=== PATIENT | female | born 1975 | race Caucasian/White ===

== ENCOUNTER 2018-02-06 07:35 | Day surgery (SDC) | payer OTHER, SELFPAY ==
--- NOTE | 2018-02-06 | EGD_PTH ---
PATIENT: JOEL HEWITT LOC: EN U#:[id number] AGE/SX: 42/F ROOM: RE02/06/[address]: Dr. Sachin Kiser MD : [id number] BED: DIS: 02/06/2018 SPEC #: [id number] RECD: 02/06/18 11:42 STATUS: ENEDINA ALEXANDRA #: [id number] ROSEANNE: 02/06/18 00:[address]: Sachin Kiser DEPT: SURGICAL PATHOLOGY RECD BY: Ole Ortega ENTERED: 02/06/18 11:42 SP TYPE: EGD BIOPSY OT DR: Dr. Bonnie Mccray, DO Tissues: Duodenum, NOS Procedures: Surgery Specimen Level IV HEADER OPERATION: EGD with biopsy PRE-OP DIAGNOSIS: GERD TISSUE SUBMITTED: Biopsy duodenum MICROSCOPIC DIAGNOSIS Duodenum, biopsy: Small intestinal mucosa, no pathologic diagnosis. SJ:oneyda 02/07/18 MICROSCOPIC DESCRIPTION Slides are reviewed. GROSS DESCRIPTION Received in fixative is one container labeled with the patient's name and designated biopsy duodenum. The specimen consists of one irregular fragment of light galloway soft tissue that measures 0.5 x 0.4 x 0.2 cm. The specimen is totally submitted in one cassette. / SJ:oneyda 02/06/18 TC:4 CPT: 32434
[2018-02-06 07:57] VITALS: BP 111/89; PULSE 73; RESP 16; TEMP 36.7; O2SAT 99; BMI 42.5
--- NOTE | 2018-02-06 09:29 | PCM.OPRPT ---
Problem List (1) Gastro-esophageal reflux disease with esophagitis Status: Acute Report of Operation Date of Procedure: 02/06/18 Pre-Operative Diagnosis: k21.0 gastroesophageal reflux disease with esophagitis Post-Operative Diagnosis: same Surgery/Procedure Performed:: [id number] esophagogastroduodenoscopy with biopsy Type of Anesthesia:: MAC Description of Procedure: Patient was brought into the endoscopy suite. The back of her throat with Cetacaine spray. A bite-block was placed. She was placed in the left lateral decubitus position. The scope was inserted in the back of the oropharynx and directed down through the esophagus into the stomach and into the duodenum without difficulty operative findings: 1. Duodenum: Normal appearance no mass lesions no ulcerations biopsy for celiac sprue was obtained 2. Stomach: Normal appearance no mass lesions no erythema biopsy for H. pylori was obtained retroflexion showed a minimal hiatal hernia. 3. Esophagus: Normal appearance no esophagitis Z line was at 37 cm and was intact and looked entirely normal. There was no signs of esophagitis whatsoever. For all intensive purposes this was an entirely normal scope showing no signs of any erythema or signs of reflux. - Admit VTE Documentation VTE Present on Admission: No VTE Mechan Device Prophylaxis: None VTE Pharm Prophylaxis ordered?: No Reason prophylaxis not ordered:: Treatment Not Indicated
[2018-02-06 09:34] VITALS: BP 111/89; BP 82/51; PULSE 71; RESP 16; TEMP 36.3; O2SAT 99
[2018-02-06 09:35] VITALS: BP 111/89; BP 93/63; PULSE 65; RESP 16; O2SAT 98
[2018-02-06 09:45] VITALS: BP 104/70; BP 111/89; PULSE 65; RESP 16; O2SAT 99
[2018-02-06 09:50] VITALS: BP 103/74; BP 111/89; PULSE 64; RESP 16; TEMP 36.3; O2SAT 100
== END 2018-02-06 09:56 | disposition home or self-care (01) ==
LOC: EN 07:36 → AC 07:38
PROVIDERS: Family Provider Family Medicine; PCP Family Medicine; Visit Provider Surgery
PROC: 0DJ08ZZ Inspection of Upper Intestinal Tract, Via Natural or Artificial Opening Endoscopic (ICD-10-PCS; CPT 43235; principal; 2018-02-06 09:40)
DX: K21.0 Gastro-esophageal reflux disease with esophagitis (principal); I10 Essential (primary) hypertension; K44.9 Diaphragmatic hernia without obstruction or gangrene; Z87.891 Personal history of nicotine dependence; Z85.41 Personal history of malignant neoplasm of cervix uteri
CPT/HCPCS: 43239; 88305; J7120

== ENCOUNTER → 2018-05-31 09:51 | Outpatient (CLI) | payer OTHER, SELFPAY ==
--- NOTE | 2018-05-31 09:52 | MRI_ITS ---
STUDY: MRI LEFT SHOULDER REASON FOR EXAM: Burning sensation radiating down arm, decreased range of motion and decreased cardroom hand strength. TECHNIQUE: Standardized fat and water weighted pulse sequences were obtained in all 3 orthogonal planes. COMPARISON: None. FINDINGS: There is mild supraspinatus tendinosis (T2 coronal images 12, 13) without discrete tendon tear. Normal infraspinatus tendon. There is mild subscapularis tendinosis (proton density axial images 9, 10) without discrete tendon tear. Normal teres minor tendon. Normal supraspinatus muscle. Normal infraspinatus muscle. Normal subscapularis muscle. Normal teres minor muscle. Normal glenohumeral articulation. Normal humeral head and visualized proximal humerus. Normal biceps labral complex. Normal intracapsular long biceps tendon. Normal labrum. Normal capsulo- ligamentous complex. There is acromioclavicular arthrosis with hypertrophic changes effacing the subacromial fat (T2 sagittal images 5, 6). There is a Type II morphology (curved), with a neutral orientation. There is no subacromial-subdeltoid bursal fluid. Normal visualized coracohumeral and coracoacromial ligaments. Normal deltoid muscle. Normal trapezius muscle. MRI/Upper Ext Joint Only(Routine) IMPRESSION: Mild supraspinatus and subscapularis tendinosis without demonstrated rotator cuff tear. Acromioclavicular arthrosis. Electronically Signed: Jaiden Newberry MD at 11:17 EDT Tel , Service support ,
== END ==
LOC: MRI 09:51
PROVIDERS: Family Provider Family Medicine; PCP Family Medicine; Visit Provider Orthopaedic Surgery
DX: M75.102 Unspecified rotator cuff tear or rupture of left shoulder, not specified as traumatic (principal)
CPT/HCPCS: 73221

== ENCOUNTER → 2018-06-08 16:58 | Outpatient (CLI) | payer OTHER, SELFPAY ==
--- NOTE | 2018-06-08 17:00 | RAD_ITS ---
STUDY: X-RAY - THORACIC SPINE REASON FOR EXAM: Female, 43 years old. Trauma TECHNIQUE: 2 view(s) of the thoracic spine were obtained. COMPARISON: None. FINDINGS: Normal kyphosis of the thoracic spine. There is no substantial scoliosis. No evidence for acute fracture or subluxation. There is multilevel disc space narrowing and osteophytic spurring as well as chronic compression deformities... The soft tissue structures are unremarkable. RAD/Thoracic Spine 2 Views IMPRESSION: Degenerative changes and chronic compression deformities. No evidence for acute fracture Electronically Signed: Saw Rainey MD at 20:54 EDT , Service support ,
== END ==
LOC: RAD 16:59
PROVIDERS: Family Provider Family Medicine; PCP Family Medicine; Visit Provider Anesthesiology Pain Medicine
DX: T14.90XA Injury, unspecified, initial encounter (principal); W19.XXXA Unspecified fall, initial encounter; Y93.9 Activity, unspecified; Y92.9 Unspecified place or not applicable; Y99.9 Unspecified external cause status
CPT/HCPCS: 72070

== ENCOUNTER 2018-07-12 17:00 | Outpatient (RCR) | payer OTHER, SELFPAY ==
--- NOTE | 2018-07-24 08:27 | HP.PTEVAL ---
Patient's Visit Information JOEL HEWITT is a 43 year old F referred to Physical Therapy by Anais Castelan DO with a diagnosis of L shoulder pain chronic, L UT strain. Date of Evaluation: 06/28/18 Physical Therapist: Anibal Castillo - Visit Plan Frequency: 2x /Week Duration: 4-6 Weeks Plan: Start with DN of L shoulder and neck, postural exercises, cervical retraction and distraction. Progress HEP and postural awareness as tolerated. Add in RTC strengthening as well. - Subjective Subjective: Pt. is here today for her initial evaluation with diagnosis of L shoulder pain, chronic. Pt. reports hurting her shoulder a few years ago, no known mechanism. Pt. has had and MRI in the past with reports of C6/C7 nerve impingment. She had a recent MRI shoulder L RTC tendonosis without tear. Pt. reports pain with: raeching over head, working, lifting, sleeping. Decreased pain: ice, pain meds, rest. Pt. reports N/T down L arm to 4th/5th fingers. Pt. has disrupted sleeping. Pt. has been seen for her neck without relief. Pt. has seen an ortho for both her shoudler and her neck. Pt. has trial PT previously and had injections without releif. Pt. is hopeful to trial DN, manual techniques inorder to reduce symptoms and get back to all recreational activiteis without limitations. - Pain L arm Pain Intensity (Out of 10): 4 Pain Intensity Range: 2, 8 - Objective POSTURE: Pt. has rounded shoulders with FH posture. Pt. has increased thoracic kyphosis with protracted scapulea bilaterally. PALPATION: Pt. has increased tenderness along subacromial region of L shoulder. Pt. has increased pain throughout L UT and L levator scapulea and L suboccipital region. NEURO: Normal all intact. Pt. does report N/T in 4/5th digits. Normal DTR bilaterally. ROM: CERIVCAL SPINE: flexion nil loss increase NW, ext min/mod loss increase NW, SB min loss bilat NE, rotation min loss bilat increase NW. Rshoulder- full motion without increase in symptoms. L shoulder- full motion, but has increased pain with reaching over head and wtih functional ER. MMT: R shoulder- 5/5 throughout. LUE- wrist/elbow 5/5 throughout; shoulder- flexion 4+/5, abd 4+/5, ext 5/5, ER 4+/5, IR 5/5. Pt. did have symptoms with flexion and abduction testing. CERVICAL ISO- full with mild increase NW with rectraction. - Special Tests C/S Radiculapathy - Left Upper limb tension test: Negative C/S Radiculapathy - Right Upper limb tension test: Negative C/S Radiculapathy - Left Spurlings: Positive C/S Radiculapathy - Right Spurlings: Negative C/S Radiculapathy - Left Cervical distraction: Negative C/S Radiculapathy - Right Cervical distraction: Negative C/S Radiculapathy - Left Relief test: Positive C/S Radiculapathy - Right Relief test: Negative Comments: Pt. has slight positives with radicular testing Cervical Sitting: Protrusion - Mechanical Response: No effect Cervical Sitting: Protrusion - Symptoms During Testing: No effect Cervical Sitting: Protrusion - Symptoms After Testing: No effect Cervical Sitting: Retraction - Mechanical Response: No effect Cervical Sitting: Retraction - Symptoms During Testing: Increases Cervical Sitting: Retraction - Symptoms After Testing: No worse L Shoulder Lift Off Test - Subscapular Tear: Negative L Shoulder Drop Sign - IS Test: Negative L Shoulder Empty Can - SS: Negative L Shoulder Belly Press - SupScap: Negative L Shoulder Neer - Impingement: Positive L Shoulder Blanchard Mack - Impingement: Positive - Goals Goal 1:: Pt. to be I with HEP. Goal Time Frame: 4-6 Weeks Goal 2:: Pt. to have full L shoulder and cervical spine ROM without increase in symptoms. Goal Time Frame: 4-6 Weeks Goal 3:: Pt. to demonstrate improved posture throughout therapy session indicating increased postural awareness. Goal Time Frame: 4-6 Weeks Goal 4:: Pt. to sleep throughout the night with 0-2/10 pain in L arm and neck. Goal Time Frame: 4-6 Weeks Goal 5:: Pt. to complete all work related activities with 0-2/10 pain in L arm and neck. - Rehabilitation Potential Physical Therapy Diagnosis: Pt. has signs and symptoms consistent with L shoulder pain and L shoulder girdle muscular tightness. Pt. has poor posture and increased weakness throughout L shoulder and cervical spine. Pt. would benefit from PT to increase cervical ROM, improve posture, decrease muscle tension allwoing for increased tolerance to all daily and work activities. Rehabilitation Potential: Good - Anticipated Interventions Patient/Client Instruction: Educate patient on: Condition, Plan of Care, Risk Factors, Benefits of Fitness Program For the Purpose of:: To improve health and function, To foster healthy habits, To improve decision making, To facilitate caregiver knowledge, To improve self management, To prevent re-injury, To improve ability to perform tasks related to life management, To improve tolerance to ADL's Therapeutic Exercise to Include: Strength training, Power training, Postural training, Flexibilty training, Passive ROM, Active ROM, Jose Alejandro Exercises, Scapular Strength/Stabilization For the Purpose of:: To decrease pain, To increase ROM, To improve nutrient delivery to tissue, To increase oxygenation perfusion, To improve muscle performance and motor function, To improve ability to perform ADL's, To improve gait and locomotor functions, To improve health of tissue, To decrease soft tissue restriction, To increase flexibility/ROM Manual Therapy Techniques to Include: Mobilization, Passive ROM, Functional dry needling, Soft tissue mobilization For the Purpose of:: To decrease pain, To decrease swelling/inflammation, To increase ROM, To improve nutrient delivery to tissue, To increase oxygenation perfusion, To improve muscle performance and motor function, To improve ability to perform ADL's, To improve health of tissue, To decrease soft tissue restriction Thank you for the opportunity to evaluate your patient. For Medicare and Medicare HMO plans, please review the plan of care and approve it. It will need to be FAXED BACK to us at [phone] for Medicare purposes. Please let me know if there are questions or concerns regarding this plan of care. Physician Signature: Date:
--- NOTE | 2018-08-22 10:49 | HP.PT.NRP ---
HP - Discharge Summary (1) - Patient Information JOEL HEWITT was seen in my office for initial evaluation on 06/28/18. The following Plan of Care was established for this patient: Initial Frequency: 2x /Week Initial Duration: 4-6 Weeks - Anticipated Interventions Patient/Client Instruction: Educate patient on: Condition, Plan of Care, Risk Factors, Benefits of Fitness Program For the Purpose of:: To improve health and function, To foster healthy habits, To improve decision making, To facilitate caregiver knowledge, To improve self management, To prevent re-injury, To improve ability to perform tasks related to life management, To improve tolerance to ADL's Therapeutic Exercise to Include: Strength training, Power training, Postural training, Flexibilty training, Passive ROM, Active ROM, Jose Alejandro Exercises, Scapular Strength/Stabilization For the Purpose of:: To decrease pain, To increase ROM, To improve nutrient delivery to tissue, To increase oxygenation perfusion, To improve muscle performance and motor function, To improve ability to perform ADL's, To improve gait and locomotor functions, To improve health of tissue, To decrease soft tissue restriction, To increase flexibility/ROM Manual Therapy Techniques to Include: Mobilization, Passive ROM, Functional dry needling, Soft tissue mobilization For the Purpose of:: To decrease pain, To decrease swelling/inflammation, To increase ROM, To improve nutrient delivery to tissue, To increase oxygenation perfusion, To improve muscle performance and motor function, To improve ability to perform ADL's, To improve health of tissue, To decrease soft tissue restriction This patient was last seen in our office 07/12/18. Pertinent comments regarding their Physical therapy will appear below: Pt. was seen for her shoulder/neck pain. Pt. was treated with DN, manual and stretching, postural education. Pt. was seen for 2 visits and has not been seen since. She will be DC from PT at this point in time. At this point I will be discontinuing this patient from physical therapy. I would be happy to see this patient again in the future if found appropriate by the physician. Thank you! Anibal Castillo
== END 2018-07-12 19:00 | disposition home or self-care (01) ==
LOC: PT 17:00
PROVIDERS: Family Provider Family Medicine; PCP Family Medicine; Visit Provider Orthopaedic Surgery
DX: M25.512 Pain in left shoulder (principal); M62.838 Other muscle spasm; M79.603 Pain in arm, unspecified; G89.29 Other chronic pain
CPT/HCPCS: 97110; 97140; 97162

== ENCOUNTER 2019-01-10 17:30 | Outpatient (RCR) | payer SELFPAY ==
--- NOTE | 2019-02-16 12:11 | HP.PT.NRP ---
HP - Discharge Summary (1) - Patient Information JOEL HEWITT was seen in my office for initial evaluation on . The following Plan of Care was established for this patient: This patient was last seen in our office 01/11/19. Pertinent comments regarding their Physical therapy will appear below: Pt. was seen for self pay DN to her L shoulder. Pt. made progress as expected. Pt. has not been seen in ~6 weeks and will be DC from PT at this point in time. At this point I will be discontinuing this patient from physical therapy. I would be happy to see this patient again in the future if found appropriate by the physician. Thank you! ASAD BatistaT
== END 2019-01-10 19:00 | disposition home or self-care (01) ==
LOC: PT 17:30
PROVIDERS: Family Provider Family Medicine; PCP Family Medicine
DX: M79.10 Myalgia, unspecified site (principal)

== ENCOUNTER 2023-01-27 08:39 | Day surgery (SDC) | payer OTHER, SELFPAY ==
[2023-01-27] VITALS (10 sets, daily range): BP systolic 117–149; BP diastolic 63–126; PULSE 65–90; RESP 16–18; TEMP 36.3–37.3; O2SAT 96–100; BMI 45.4
--- NOTE | 2023-01-27 08:15 | OP.PCM_ITS ---
Report of Operation Date of Procedure: 01/27/23 Pre-Operative Diagnosis: urge incontinence, nocturia, urinary frequency Post-Operative Diagnosis: same Surgery/Procedure Performed:: Axonics Stage 1 with difficulty Description of Surgical Findings:: Surgeon: Cely Heck Type of Anesthesia: MAC Description of Procedure: The patient is a 47-year-old female with significant urinary frequency, nocturia and urge incontinence with failure of more conservative management who presents for an Axonics stage I trial. Informed consent has been obtained. The patient was taken to the operating room and placed in a prone position on the operating room table. She was appropriately padded and secured to the table. Anesthesia monitored the head, neck, airway, IV access and vital signs throughout the case. Once anesthesia was appropriately administered, the patient was prepped and draped in usual sterile fashion. Using fluoroscopic visualization, her sacral anatomy was outlined on her skin using a marker. The areas overlying the insertion sites for the S3 foramen were infiltrated bilaterally with lidocaine. The patient began to move significantly, and with any stimulation was moving her hips. She was falling asleep and startling awake. The decision was made to take her later on the anesthesia. After multiple attempts, the needle was placed through the S3 foramen on the patient's left side and stimulation revealed appropriate sensation felt in the midline perineum. The guidewire was then placed and a skin incision was made. The lead was inserted and tested. All 4 leads had a good response with patient's sensation in the correct anatomic position. At this time the lead was tunneled into the selected pocket site which was previously infiltrated with lidocaine. The pocket was developed using blunt dissection and Bovie cautery. Hemostasis was obtained and then the lead was tunneled into the pocket site. The lead was cleaned and inserted into the lead extension and secured using the torque wrench. The pocket site was irrigated. Using the tunneling device, the lead extension was tunneled to the contralateral side and exited using a knife and the tunneler. The pocket was closed with 3-0 Vicryl followed by 4-0 Monocryl and Dermabond. The incision over the lead insertion site was closed with 1 deep suture followed by Steri- Strips. The lead extension was inserted into the battery and was secured using an OpSite followed by cloth tape. The patient was then taken to the recovery room in good condition. There were no complications during this procedure. Grafts/Implants Used: Axonics lead and lead extension Complications none Admit VTE Documentation VTE Present on Admission: No VTE Pharm Prophylaxis ordered?: No Reason prophylaxis not ordered:: Treatment Not Indicated
--- NOTE | 2023-01-27 08:16 | DCINST_ITS ---
Discharge Instructions Diet Discharge Diet: No restrictions Activity Discharge Activity: May Not Shower May resume sexual activity in: 3 weeks Dressing / Incision Call your doctor if your incision/area has: Continuous Slow Oozing, Sudden Increased Bleeding, Increased Pain/ Swelling, Increased Redness, Foul Smelling Discharge and Swelling at the incision site Call your doctor if you observe: Fever of 101 or Higher, Inability to urinate and Inability to have a bowel movement Suture Line Care: Avoid Pulling/Pushing and Avoid Pinching/Bending Change Dressing in: do not change dressing Remove Dressing in: do not remove dressing Cleanse incision/area with: Keep Dressing Clean & Dry Follow Up Care Please Follow Up With: Cely Heck MD When: in the office next week as scheduled Test Results: Test results from this visit will be discussed in further detail at your follow- up appointment, if applicable. Discharge Plan Admission Attending Provider: Cely Heck Primary Care Provider: Bonnie Mccray Discharge Orders/Prescriptions Prescriptions: New oxycodone-acetaminophen [Percocet] 5-325 mg tablet 1 tab PO Q8H PRN (Reason: pain) 3 Days Qty: 10 0RF cephalexin [cephalexin] 500 mg capsule 500 mg PO Q12 3 Days Qty: 6 0RF Continued topiramate 25 mg tablet 25 mg PO BID zolpidem 10 mg tablet 10 mg PO HS PRN (Reason: Sleep) duloxetine 60 mg capsule,delayed release(DR/EC) 90 mg PO QDAY sumatriptan succinate 100 mg tablet 100 mg PO PRN PRN (Reason: MIGRAINES) Label Comments: 1 TABLET BY MOUTH NEEDED FOR MIGRAINES, MAY REPEAT 2 HRS LATER IF PRESISTS. MAX 2 DAILY. meloxicam 15 mg tablet 15 mg PO DAILY Label Comments: TAKE 1 TABLET BY MOUTH EVERY DAY famotidine 40 mg tablet 40 mg PO PRN PRN (Reason: GERD) Label Comments: TAKE 1 TABLET BY MOUTH TWICE A DAY NEEDED tizanidine 4 mg capsule 4 mg PO PRN PRN (Reason: FIBROMYALGIA) Label Comments: 1 CAPSULE ORALLY 3 TIMES PER DAY NEEDED topiramate [Trokendi XR] 100 mg Capsule,Extended Release 24hr 100 mg PO DAILY Referrals / Follow Up: Bonnie Mccray DO [Primary Care Provider] - Disposition Disposition (needs filled in before D/C Order can be placed): Home, Self Care
--- NOTE | 2023-01-27 09:10 | RAD_ITS ---
STUDY: X-RAY - PELVIS REASON FOR EXAM: Female, 47 years old. Axonics placement TECHNIQUE: 2 fluoroscopic images obtained, 73.2 seconds of fluoroscopy, a dose of 59.49mGy COMPARISON: None. FINDINGS: 2 limited fluoroscopic images of the pelvis performed during bladder stimulator placement RAD/Pelvis 1 or 2 Views IMPRESSION: No intraoperative complications during bladder stimulator placement Electronically Signed: Emanuel Key MD at 13:25 EDT ,
[2023-01-27] MEDS: Lactated Ringers 1,000 ML 15 ML IV (09:12)
[2023-01-27] MEDS: Lidocaine 1% /Epi 1:100 (50ml) 50 ML VIAL (11:15)
[2023-01-27] MEDS: Acetaminophen 325 MG Tablet PO (12:39)
[2023-01-27] MEDS: oxyCODONE 5 MG Tablet PO (12:39)
== END 2023-01-27 13:19 | disposition home or self-care (01) ==
LOC: SDC 08:40 → AC 08:41
PROVIDERS: PCP Family Medicine; Referring Provider Urology; Visit Provider Urology
PROC: (CPT 64561; principal; 2023-01-27 10:00)
DX: N39.41 Urge incontinence (principal); R35.0 Frequency of micturition; M79.7 Fibromyalgia; K21.9 Gastro-esophageal reflux disease without esophagitis; I10 Essential (primary) hypertension; Z85.41 Personal history of malignant neoplasm of cervix uteri; Z87.891 Personal history of nicotine dependence
CPT/HCPCS: 64561; 00300; 72170; 76000; J7040; J7120; J2405

== ENCOUNTER 2023-02-10 05:54 | Day surgery (SDC) | payer OTHER, SELFPAY ==
[2023-02-10 06:22] VITALS: BP 113/57; PULSE 61; RESP 18; TEMP 36.4; O2SAT 99; BMI 45.4
[2023-02-10] MEDS: Lactated Ringers 1,000 ML 15 ML IV (06:31)
[2023-02-10] MEDS: Lidocaine 1% /Epi 1:100 (20ml) 20 ML Vial (07:47)
[2023-02-10 08:15] VITALS: BP 113/57; BP 124/72; PULSE 72; RESP 16; TEMP 36.2; O2SAT 94
[2023-02-10 08:21] VITALS: BP 113/57; BP 79/50; PULSE 67; RESP 16; O2SAT 96
[2023-02-10 08:26] VITALS: BP 108/60; BP 113/57; PULSE 70; RESP 16; O2SAT 97
[2023-02-10 08:35] VITALS: BP 110/71; BP 113/57; PULSE 66; TEMP 36.2; O2SAT 98
--- NOTE | 2023-02-10 08:35 | DCINST_ITS ---
Discharge Instructions Diet Discharge Diet: No restrictions Activity Discharge Activity: May Shower (tomorrow) May resume sexual activity in: 2 weeks Dressing / Incision Call your doctor if your incision/area has: Continuous Slow Oozing, Sudden Increased Bleeding, Increased Pain/ Swelling, Increased Redness, Foul Smelling Discharge and Swelling at the incision site Call your doctor if you observe: Fever of 101 or Higher, Inability to urinate and Inability to have a bowel movement Suture Line Care: Avoid Pulling/Pushing and Avoid Pinching/Bending Remove Dressing in: leave until fall off (do not remove the skin glue, let it fall off) Cleanse incision/area with: Keep Dressing Clean & Dry Follow Up Care Please Follow Up With: Cely Heck MD Test Results: Test results from this visit will be discussed in further detail at your follow- up appointment, if applicable. Discharge Plan Admission Attending Provider: Cely Heck Primary Care Provider: Bonnie Mccray Discharge Orders/Prescriptions Prescriptions: Continued topiramate 25 mg tablet 25 mg PO BID zolpidem 10 mg tablet 10 mg PO HS PRN (Reason: Sleep) duloxetine 60 mg capsule,delayed release(DR/EC) 90 mg PO QDAY sumatriptan succinate 100 mg tablet 100 mg PO PRN PRN (Reason: MIGRAINES) Label Comments: 1 TABLET BY MOUTH NEEDED FOR MIGRAINES, MAY REPEAT 2 HRS LATER IF PRESISTS. MAX 2 DAILY. meloxicam 15 mg tablet 15 mg PO DAILY Label Comments: TAKE 1 TABLET BY MOUTH EVERY DAY famotidine 40 mg tablet 40 mg PO PRN PRN (Reason: GERD) Label Comments: TAKE 1 TABLET BY MOUTH TWICE A DAY NEEDED tizanidine 4 mg capsule 4 mg PO PRN PRN (Reason: FIBROMYALGIA) Label Comments: 1 CAPSULE ORALLY 3 TIMES PER DAY NEEDED topiramate [Trokendi XR] 100 mg Capsule,Extended Release 24hr 100 mg PO DAILY oxycodone-acetaminophen [Percocet] 5-325 mg tablet 1 tab PO Q8H PRN (Reason: pain) 3 Days Qty: 10 0RF cephalexin 500 mg capsule 500 mg PO Q12 3 Days Qty: 6 0RF Referrals / Follow Up: Bonnie Mccray DO [Primary Care Provider] - Disposition Disposition (needs filled in before D/C Order can be placed): Home, Self Care
--- NOTE | 2023-02-10 08:38 | OP.PCM_ITS ---
Report of Operation Date of Procedure: 02/10/23 Pre-Operative Diagnosis: Urge incontinence, nocturia, urinary frequency Post-Operative Diagnosis: Same Surgery/Procedure Performed:: Axonics stage II Surgeon: Cely Heck Type of Anesthesia: MAC Estimated Blood Loss (mL): 5 cc Description of Procedure: The patient is a 47-year-old female with a successful stage I Axonics procedure now presenting for stage II implantation of the battery. Informed consent was obtained. The patient was taken to the operating room and placed in a prone position on the operating room table. She was appropriately padded and secured to the table. Anesthesia monitored the head, neck, airway, IV access and vital signs throughout the case. Once anesthesia was appropriately administered, the patient was prepped and draped in usual sterile fashion. The existing incision at the pocket site was infiltrated with local anesthetic. It was opened using a knife and hemostat. The lead extension was isolated and the lead was removed using the torque wrench. The lead extension was then cut and pulled from the operative field. The pocket site was enlarged using Bovie cautery and blunt dissection. Hemostasis was obtained and the pocket was irrigated. The lead was dried and inserted into the battery and secured using the torque wrench. The battery was then placed into the pocket site which was closed in 2 layers using 3-0 interrupted Vicryl followed by 4-0 Monocryl subcuticular suture. Skin glue was then applied to the incision. The patient was awakened and taken to the r ecovery room in good condition. There were no complications during this procedure. Grafts/Implants Used: Axonics battery Complications None Admit VTE Documentation VTE Present on Admission: No VTE Mechan Device Prophylaxis: None VTE Pharm Prophylaxis ordered?: No Reason prophylaxis not ordered:: Treatment Not Indicated
[2023-02-10] MEDS: oxyCODONE 5 MG Tablet PO (09:00)
[2023-02-10] MEDS: Acetaminophen 325 MG Tablet PO (09:00)
[2023-02-10 09:19] VITALS: BP 113/57; BP 144/86; PULSE 77; RESP 18; TEMP 36.8; O2SAT 98
== END 2023-02-10 09:29 | disposition home or self-care (01) ==
LOC: SDC 05:55 → AC 05:56
PROVIDERS: PCP Family Medicine; Referring Provider Urology; Visit Provider Urology
PROC: (CPT 64590; principal; 2023-02-10 07:20)
DX: N39.41 Urge incontinence (principal); R35.0 Frequency of micturition; I10 Essential (primary) hypertension; M79.7 Fibromyalgia; Z86.73 Personal history of transient ischemic attack (TIA), and cerebral infarction without residual deficits; R35.1 Nocturia
CPT/HCPCS: 64590; 95972; 00300; J7040; J7120; J2405

== ENCOUNTER → 2024-05-30 | Outpatient (CLI) | payer OTHER, SELFPAY ==
[2024-05-30 15:56] LABS: Absolute Lymphocyte Count 3.99 X10^3/uL (0.83-4.51); Absolute Neutrophil Count 2.6 X10^3/uL (2.0-7.7); Basophil# 0.06 X10^3/uL; Basophil% 0.8 % (0-1); Eosinophil# 0.16 X10^3/uL; Eosinophils% 2.2 % (0-5); Hematocrit 45.1 % (37-47); Hemoglobin 14.8 g/dL (12.0-15.0); Lymphocyte # 3.99 X10^3/ul (0.83-4.51); Lymphocyte % 54.4 % (19-41); Mean Corp Hgb Conc 32.8 g/dL (32-36); Mean Corpuscular Hgb 30.6 pg (27.0-32.0); Mean Corpuscular Volume 93.4 fL (81-99); Mean Platelet Vol. 9.9 fl (6.2-12.0); Monocyte# 0.54 X10^3/uL; Monocyte% 7.4 % (0-10); NRBC Flagged by Analyzer 0.3 % (0-5); Neutrophil # 2.57 X10^3/uL (2.7-7.7); Neutrophil % 35.1 % (47-70); Platelet Count 310 K/mm3 (150-450); RBC Distribution Width CV 11.9 % (11.6-14.6); RBC Distribution Width SD 40.4 fl (35.1-43.9); Red Blood Count 4.83 M/mm3 (4.2-5.4); White Blood Count 7.3 K/mm3 (4.4-11.0)
[2024-05-30 16:17] LABS: Vitamin B12 445 pg/mL (211-911); Vitamin D,25 Hydroxy 21.8 ng/mL
[2024-05-30 16:29] LABS: AST(SGOT) 21 U/L (15-37); Alanine Aminotransfer ALT/SGPT 34 U/L (13-56); Alkaline Phosphatase 77 U/L (45-117); Anion Gap 7 (5-15); BUN 13 mg/dL (7-18); BUN/Creat Ratio 14.7 RATIO (10-20); CRP 4.32 mg/L (0.0-3.0); Calcium,Total 9.9 mg/dL (8.5-10.1); Chloride 103 mmol/L (98-107); Creatinine, Serum 0.88 mg/dL (0.55-1.02); EST Glomerular Filtration Rate 72 mL/min (>60); Est Glom Filt Rate - Afr Amer 87 mL/min (>60); Ferritin 51 ng/mL (8-252); Globulin 4.1 g/dL (2.2-4.2); Glucose 92 mg/dL (74-106); Iron 75 ug/dL (50-170); Potassium 3.8 mmol/L (3.5-5.1); Protein, Total 8.1 g/dL (6.4-8.2); Sodium Level 136 mmol/L (136-145); T4 Free Direct 1.04 ng/dL (0.76-1.46); Thyroid Stim Hormone (TSH) 1.44 uIU/mL (0.358-3.74)
[2024-06-01 15:09] LABS: Thyroglobulin Antibody 9.4 IU/mL (0.0-0.9); Thyroid Peroxidase AB 197 IU/mL (0-34)
== END | disposition home or self-care (01) ==
LOC: LABSPEC 15:07 → BFHLAB 15:57
PROVIDERS: PCP Family Medicine; Referring Provider Family Medicine; Visit Provider Family Medicine
DX: E03.9 Hypothyroidism, unspecified (principal); Z51.81 Encounter for therapeutic drug level monitoring; D64.9 Anemia, unspecified; M25.50 Pain in unspecified joint; E53.8 Deficiency of other specified B group vitamins; E55.9 Vitamin D deficiency, unspecified
CPT/HCPCS: 36415; 80053; 82306; 82607; 82728; 83540; 84439; 84443; 84481; 85025; 86140; 86376; 86800

== ENCOUNTER 2024-10-08 10:46 | Emergency (ER) | payer OTHER, SELFPAY ==
[2024-10-08 10:47] VITALS: BP 135/106; PULSE 70; RESP 18; TEMP 36.3; O2SAT 100
[2024-10-08] MEDS: Acetaminophen 500 MG Tablet 1000 MG PO (11:13)
[2024-10-08] MEDS: Ibuprofen 200 MG Tablet 400 MG PO (11:13)
[2024-10-08 11:15] VITALS: BMI 49.2
--- NOTE | 2024-10-08 11:16 | EX.ED.DYSGE1 ---
HPI History of Present Illness Chief Complaint: Lower Extremity Injury PFSH PFS Medical History Urge incontinence Wears dentures Wears glasses Post-menopausal Cancer Depression Anxiety History of steroid therapy Chronic pain disorder Back pain Migraine headache Former smoker Chronic neck and back pain Ovarian cyst History of cervical cancer Erosive esophagitis Fibromyalgia B12 deficiency GERD (gastroesophageal reflux disease) HTN (hypertension) Home Medications ?Medication ?Instructions ?Recorded ?Last Taken ?Type duloxetine 60 mg capsule,delayed 90 mg PO QDAY ANXIETY 01/23/18 Unknown History release topiramate 25 mg tablet 25 mg PO BID 01/23/18 Unknown History zolpidem 10 mg tablet 10 mg PO HS PRN Sleep 01/23/18 Unknown History famotidine 40 mg tablet 40 mg PO PRN PRN GERD 01/20/23 01/27/23 History meloxicam 15 mg tablet 15 mg PO DAILY 01/20/23 Unknown History sumatriptan succinate 100 mg tablet 100 mg PO PRN PRN MIGRAINES 01/20/23 Unknown History tizanidine 4 mg capsule 4 mg PO PRN PRN FIBROMYALGIA 01/20/23 Unknown History topiramate 100 mg capsule,extended 100 mg PO DAILY 01/20/23 Unknown History release 24 hr (Trokendi XR) cephalexin 500 mg capsule 500 mg PO Q12 post-operative 3 02/10/23 Unknown Rx days #6 CAPSULES oxycodone-acetaminophen 5 mg-325 1 tab PO Q8H PRN pain 3 days #10 02/10/23 Unknown Rx mg tablet (Percocet) tabs Allergy/AdvReac Type Severity Reaction Status Date / Time gabapentin Allergy Mild anxiety Verified 10/08/24 10:47 codeine phosphate (From Allergy Other Verified 10/08/24 10:47 Tylenol-Codeine) Family History Mother Thyroid disorder Graves Surgical History Hx of surgical procedure History of esophagogastroduodenoscopy (EGD) S/P laparoscopic cholecystectomy S/P section S/P hysterectomy Social History (Updated 07/05/18 @ 11:[address] Anais Castelan, DO) Smoking Status: Former smoker EXAM Physical Exam Const Vital Signs: 10/08/24 10:47 Temperature 97.4 F L Temperature Source Oral Pulse Rate 70 Respiratory Rate 18 Blood Pressure 135/106 H Blood Pressure Mean 115 Pulse Ox 100 Oxygen Delivery Method Room Air [facility] Narrative Medical decision making narrative: HISTORY OF PRESENT ILLNESS: 49-year-old female presents with left knee pain. Notes 3 days ago she had mechanical fall from standing. Notes severe left knee pain. Patient denies active cancer, being bedridden for greater than 3 days, denies unilateral leg swelling, denies any varicose veins, denies any calf tenderness, denies tenderness along deep venous system. Denies major surgery within 12 weeks, recent paralysis, previous DVT. Denies numbness, loss sensation, leg swelling. REVIEW OF SYSTEMS: Pertinent positives: Left knee pain Pertinent negatives: Hip pain, back pain PHYSICAL EXAM: Nursing triage notes reviewed, Vital signs reviewed Constitutional: please see mdm HENT: MMM Eyes: Pupils equal round and reactive to light, Extraocular muscles intact Neck: No stridor, no JVD, full neck ROM Lungs: Clear to auscultation, No wheezing or rales. No increased work of breathing, no conversational dyspnea, no accessory muscle use, no nasal flaring. No respiratory distress noted Heart: Regular rate and rhythm, No murmurs, No rubs and No gallops, 2+ distal pulses (radial, femoral, posterior tibial) in all extremities Abdomen: Soft, there is no tenderness, rigidity, rebound or guarding, no obvious peritoneal signs, no palpable pulsatile abdominal masses, no auscultated abdominal bruit : No CVAT Extremities: No edema slight swelling, ecchymosis noted to left knee. Intact quadriceps tendon complex, compartments are soft. Neuro: Intact sensation L1-S1 dermatomal distributions. Intact 5/5 strength in hip flexion (T12-L3). Knee extension (L2-L4). Ankle dorsiflexion (L4-L5). Ankle plantar flexion (S1). Great toe extension (L5). 2+ patellar and Achilles DTRs. Skin: Ecchymosis noted over left knee MEDICAL DECISION MAKING: Chief Complaint: Knee pain External records reviewed: Reviewed allergies, problem list, vital signs and current medications Factors affecting care: Fibromyalgia Social determinants of health: none History obtained from others: none Consults: none [facility] Narrative: The patient was initially hemodynamically stable, afebrile and nontoxic-appearing. Exam with TTP over medial tibia. Slight ecchymosis noted over knee. But intact range of motion of quadriceps tendon complex I considered the following differential diagnosis: Knee fracture, dislocation, quadriceps tendon rupture, DVT The patient's history and physical exam not consistent with DVT or quadriceps tendon rupture ALL IMAGES (IF OBTAINED) HAVE BEEN PERSONALLY REVIEWED AND INTERPRETED BY MYSELF. X-ray of the left knee was read reviewed person by myself shows no evidence of fracture dislocation The patient and/or family, caregivers express understanding. The patient and/or family, caregivers agrees with the plan. Shared decision making: I will have a discussion with the patient and or visitors regarding risk/benefits of further testing or admission. They will be made aware of of the risk/benefits inherent in this decision they will be given the opportunity to voice understanding. Total critical care time today provided was at least 0 minutes. This excludes separately billable procedures. Critical care time (if documented) is secondary to the patient having high probability of clinically significant/life threatening deterioration in the patient's condition which required my urgent intervention. Impression: 1. Acute Left knee pain 2. Left knee contusion Dispo: Discharge home This note was generated with Mendor dictation software. It may contain incorrect words, spelling, and punctuation that were not noted in review of the chart prior to signing. Radiography Diagnostic Testing: Clinical Impression(s) from Imaging Studies Knee X-Ray 10/08/24 11:25 IMPRESSION: No acute fracture or dislocation. Mild arthrosis. Electronically Signed: Nahid Tapia MD at 11:45 EST , Discharge Plan Triage Chief Complaint: Lower Extremity Injury ED Provider: Fausto Brice Dx/Rx/DC Orders Prescriptions: No Action topiramate 25 mg tablet 25 mg PO BID zolpidem 10 mg tablet 10 mg PO HS PRN (Reason: Sleep) duloxetine 60 mg capsule,delayed release(DR/EC) 90 mg PO QDAY sumatriptan succinate 100 mg tablet 100 mg PO PRN PRN (Reason: MIGRAINES) Patient Comments: 1 TABLET BY MOUTH NEEDED FOR MIGRAINES, MAY REPEAT 2 HRS LATER IF PRESISTS. MAX 2 DAILY. meloxicam 15 mg tablet 15 mg PO DAILY Patient Comments: TAKE 1 TABLET BY MOUTH EVERY DAY famotidine 40 mg tablet 40 mg PO PRN PRN (Reason: GERD) Patient Comments: TAKE 1 TABLET BY MOUTH TWICE A DAY NEEDED tizanidine 4 mg capsule 4 mg PO PRN PRN (Reason: FIBROMYALGIA) Patient Comments: 1 CAPSULE ORALLY 3 TIMES PER DAY NEEDED topiramate [Trokendi XR] 100 mg Capsule,Extended Release 24hr 100 mg PO DAILY oxycodone-acetaminophen [Percocet] 5-325 mg tablet 1 tab PO Q8H PRN (Reason: pain) 3 Days Qty: 10 0RF cephalexin 500 mg capsule 500 mg PO Q12 3 Days Qty: 6 0RF Primary Care Provider: Bonnie Mccray Referrals: Bonnie Mccray DO [Primary Care Provider] - Print Language: Uruguayan
--- NOTE | 2024-10-08 11:25 | RAD_ITS ---
STUDY: X-RAY - LEFT KNEE REASON FOR EXAM: Female, 49 years old. pain after fall TECHNIQUE: 4 view(s) of the knee. COMPARISON: None. FINDINGS: Normal visualized distal femur. Normal visualized proximal tibia and fibula. Normal proximal tibiofibular articulation. There is mild degenerative arthrosis of the medial femorotibial compartment. There is mild degenerative arthrosis of the lateral femorotibial compartment. There is mild degenerative arthrosis of the patellofemoral articulation. The soft tissue structures are unremarkable. RAD/Knee 4 or More Views IMPRESSION: No acute fracture or dislocation. Mild arthrosis. Electronically Signed: Nahid Tapia MD at 11:45 EST ,
== END 2024-10-08 12:06 | disposition home or self-care (01) ==
PROVIDERS: Emergency Provider Emergency Medicine; PCP Family Medicine; Visit Provider Emergency Medicine
DX: S80.02XA Contusion of left knee, initial encounter (principal); Z90.710 Acquired absence of both cervix and uterus; I10 Essential (primary) hypertension; Z87.891 Personal history of nicotine dependence; Z85.41 Personal history of malignant neoplasm of cervix uteri; K21.9 Gastro-esophageal reflux disease without esophagitis; Z79.899 Other long term (current) drug therapy; F41.9 Anxiety disorder, unspecified; F32.A Depression, unspecified; Z90.49 Acquired absence of other specified parts of digestive tract; W18.30XA Fall on same level, unspecified, initial encounter
CPT/HCPCS: 73564; 99283

== ENCOUNTER 2025-05-27 06:24 | Emergency (ER) | payer OTHER, SELFPAY ==
[2025-05-27 06:26] VITALS: BP 151/90; PULSE 90; RESP 18; TEMP 36.6; O2SAT 98; BMI 48.6
--- NOTE | 2025-05-27 07:43 | EX.ED.DYSGE1 ---
HPI History of Present Illness Chief Complaint: General Illness Informant: patient and parent Narrative Narrative: Patient states she is here because of a migraine but it is unusual because it has lasted so long and it is much worse and with what she is calling fibromyalgia symptoms that usually does not occur with her migraines. She states she gets migraines often. She states they typically come on fairly suddenly like a thunderclap headache, like this one started 4 days ago. However, they usually occur in her left posterior lateral upper neck, this 1 is there but also left temporoparietal head, and shooting electric shock-like pain throughout her body worse on the left including the left neck. She has been photophobic and vomiting with this, and also having diarrhea which she cannot expound on further. She has tried to take her oral medications such as Imitrex and topicals and has had no relief. [facility] Medical History Urge incontinence Wears dentures Wears glasses Post-menopausal Cancer Depression Anxiety History of steroid therapy Chronic pain disorder Back pain Migraine headache Former smoker Chronic neck and back pain Ovarian cyst History of cervical cancer Erosive esophagitis Fibromyalgia B12 deficiency GERD (gastroesophageal reflux disease) HTN (hypertension) Home Medications ?Medication ?Instructions ?Recorded ?Last Taken ?Type duloxetine 60 mg capsule,delayed 90 mg PO QDAY ANXIETY 01/23/18 05/25/25 History release zolpidem 10 mg tablet 10 mg PO HS PRN Sleep 01/23/18 Unknown History famotidine 40 mg tablet 40 mg PO PRN PRN GERD 01/20/23 01/27/23 History meloxicam 15 mg tablet 15 mg PO DAILY 01/20/23 Unknown History sumatriptan succinate 100 mg tablet 100 mg PO PRN PRN MIGRAINES 01/20/23 Unknown History tizanidine 4 mg capsule 4 mg PO PRN PRN FIBROMYALGIA 01/20/23 Unknown History levothyroxine 25 mcg tablet 25 mcg PO DAILY 05/27/25 05/25/25 History lorazepam 1 mg tablet 1 mg PO TID PRN PRN anxiety 05/27/25 05/25/25 History metformin 500 mg tablet,extended 500 mg PO DAILY 05/27/25 Unknown History release 24 hr ropinirole 2 mg tablet 2 mg PO QPM 05/27/25 Unknown History Allergy/AdvReac Type Severity Reaction Status Date / Time gabapentin Allergy Mild anxiety Verified 05/27/25 06:32 codeine phosphate (From Allergy Other Verified 05/27/25 06:32 Tylenol-Codeine) Family History Mother Thyroid disorder Graves Family History other other (Uncle with brain aneurysm) Surgical History Hx of surgical procedure History of esophagogastroduodenoscopy (EGD) S/P laparoscopic cholecystectomy S/P section S/P hysterectomy Social History Smoking Status: Former smoker ROS ROS ED Constitutional Constitutional ED: Denies chills or fever(s) Eyes Eyes: Reports blurry vision; Denies diplopia ENT ENT ED: Denies ear pain or sore throat Cardiovascular Cardiovascular: Denies chest pain or palpitations Respiratory/Chest Respiratory/Chest: Denies dyspnea Gastrointestinal Gastrointestinal: Reports diarrhea, nausea and vomiting; Denies abdominal pain Genitourinary Genitourinary ED: Reports dysuria and urinary frequency Musculoskeletal Musculoskeletal: Reports neck pain and other Details: Pain everywhere worse in the left Integumentary Denies abscess or rash Neurologic Neurologic: Reports disequilibrium, dizziness, headache(s) and other Details: I keep falling to the left and bumping into things ; Denies abnormal speech, focal weakness, paresthesias or weakness Psychiatric Psychiatric: Denies suicidal ideation EXAM Physical Exam Const Vital Signs: 05/27/25 06:26 05/27/25 08:24 Temperature 98 F Temperature Source Temporal Pulse Rate 90 78 Respiratory Rate 18 16 Blood Pressure 151/90 H 146/84 H Blood Pressure Mean 110 104 Pulse Ox 98 98 Oxygen Delivery Method Room Air Positive well nourished and well developed General Appearance ED: well developed and NAD HEENT Reports normocephalic, TM's clear and moist mucous membranes atraumatic Tympanic Membrane ED: Yes TM's clear Eyes PERRL, EOMs intact bilaterally and conjunctivae normal Eyes Narrative: photophobia Neck no lymphadenopathy, supple and no meningeal signs Resp normal respiratory effort and clear to auscultation bilaterally Cardio regular rate, regular rhythm and no murmurs Rate: Negative for tachycardic GI non-tender and non-distended Palpation: soft Back/Spine no CVA tenderness Extremity normal to inspection and full ROM Neuro oriented x3 and CN's II-XII intact bilaterally Neuro Narrative: Relatively limited exam; patient feels generally weak and attempting exam maneuvers but with limited effort; no lateralizing deficits Sensorium / Orientation: awake and alert Speech: speech normal Motor Exam: strength 5/5 throughout Psych Psych Narrative: Labile emotions. At 1 point angry with examiner and threatening to leave, but then changed her mind. Mood & Affect: anxious and tearful Skin Lesions: no lesions Rashes: no rashes MDM MDM MDM Narrative Medical decision making narrative: History taking challenging with this patient; understanding that she feels miserable, I was trying to discern whether this could be cerebral aneurysm/subarachnoid hemorrhage or just a bad migraine, and in doing this multiple lines of questioning were required, patient interrupted multiple times and was very upset because of this but we were able to talk through it and she was amenable to stay for testing and treatment. She was sent for CT angiography of the head as well as given fentanyl because of what she is describing as fibromyalgia pain, as well as Reglan Benadryl for what may be a migraine. This did not help her headache, she was feeling a little agitated, which may be akathisia despite the Benadryl some giving her another dose in addition to dihydroergotamine and some Toradol after reviewing her CTA of the head and neck which on my interpretation does not appear to show any hemorrhage, radiology in agreement that there is no hemorrhage or sign of an aneurysm. Her labs are normal, she does not have hypercalcemia, and she does not have a urine infection. She was additionally given the above medications but states they did not help. She is ambulatory without ataxia. Given this I do not think she needs to be admitted or have a stat MRI. I offered more medications, she made nursing take her IV out prior to my reevaluation, and states that she wants to leave. I offered her other migraine treatments such as valproic acid which she declined because of the time that would be involved, but she was amenable to trying a dose of Ativan as a muscle relaxing agent to see if it helps, it is possible she has a neck strain and it triggered a migraine. She is amenable to that as an IM treatment, and then her mom will take her home. History & Record Review Discussion w/independent historian: Patient and Family Lab Data Attestation: I reviewed the patient's lab results. Labs: Laboratory Results - last 24 hr 05/27/25 05/27/25 07:40 08:04 WBC 7.4 RBC 4.97 Hgb 15.5 H Hct 44.5 MCV 89.5 MCH 31.2 MCHC 34.8 RDW Std Deviation 38.2 RDW Coeff of Pawan 11.8 Plt Count 305 Immature Gran % (Auto) 0.300 Neut % (Auto) 39.5 L Lymph % (Auto) 47.2 H Knox % (Auto) 9.2 Eos % (Auto) 2.7 Baso % (Auto) 1.1 H Absolute Neuts (auto) 2.9 Absolute Lymphs (auto) 3.51 Sodium 138 Potassium 3.9 Chloride 99 Carbon Dioxide 23.4 Anion Gap 16 H BUN 5 Creatinine 0.68 L Estim Creat Clear Calc 147.37 Est GFR (MDRD) Non-Af 105 BUN/Creatinine Ratio 8.0 L Glucose 135 H Calcium 9.7 Urine Color Yellow Urine Clarity Sl. Cloudy Urine pH 7.0 Ur Specific [place] 1.010 Urine Protein 15 H Urine Glucose (UA) Normal Urine Ketones Negative Urine Occult Blood 10 H Urine Nitrite Negative Urine Bilirubin Negative Urine Urobilinogen Normal Ur Leukocyte Esterase Negative Urine RBC 0-5 SEEN Urine WBC 0 SEEN Ur Squamous Epith Cells 0-5 SEEN Urine Bacteria 0 SEEN Urine Mucus 0 SEEN Radiography Diagnostic Testing: Clinical Impression(s) from Imaging Studies Head CTA 05/27/25 08:25 IMPRESSION: Atherosclerotic plaque formation of the distal portion of the left internal carotid artery causing at least 70% stenosis. No evidence of aneurysm. No evidence of subarachnoid hemorrhage. Reading Location: [place] [address] Discharge Plan Triage Chief Complaint: General Illness ED Provider: Dakota Barroso Dx/Rx/DC Orders Clinical Impression: Headache, migraine, Muscle pain, fibromyalgia, Musculoskeletal neck pain Instructions: Migraine Triggers Prescriptions: No Action zolpidem 10 mg tablet 10 mg PO HS PRN (Reason: Sleep) duloxetine 60 mg capsule,delayed release(DR/EC) 90 mg PO QDAY sumatriptan succinate 100 mg tablet 100 mg PO PRN PRN (Reason: MIGRAINES) Patient Comments: 1 TABLET BY MOUTH NEEDED FOR MIGRAINES, MAY REPEAT 2 HRS LATER IF PRESISTS. MAX 2 DAILY. meloxicam 15 mg tablet 15 mg PO DAILY Patient Comments: TAKE 1 TABLET BY MOUTH EVERY DAY famotidine 40 mg tablet 40 mg PO PRN PRN (Reason: GERD) Patient Comments: TAKE 1 TABLET BY MOUTH TWICE A DAY NEEDED tizanidine 4 mg capsule 4 mg PO PRN PRN (Reason: FIBROMYALGIA) Patient Comments: 1 CAPSULE ORALLY 3 TIMES PER DAY NEEDED ropinirole 2 mg tablet 2 mg PO QPM levothyroxine 25 mcg tablet 25 mcg PO DAILY lorazepam 1 mg tablet 1 mg PO TID PRN PRN (Reason: anxiety) metformin 500 mg tablet extended release 24 hr 500 mg PO DAILY Primary Care Provider: Bonnie Mccray Referrals: Bonnie Mccray DO [Primary Care Provider] - 3-5 Days if not improving Print Language: Burkinan Disposition Disposition: Home, Self Care
[2025-05-27] MEDS: fentaNYL 100 MCG/2 ML Ampul 50 MCG IV (07:45)
[2025-05-27] MEDS: DiphenhydrAMINE 50 MG/ML Syringe 25 MG IV ×2 (07:45→09:54)
[2025-05-27] MEDS: 0.9% Normal Saline (1000mL) 1,000 ML 999 ML IV (07:45)
[2025-05-27 07:53] LABS: Hematocrit 44.5 % (37-47); Hemoglobin 15.5 g/dL (12.0-15.0); Immature Granulocytes Count 0.020 X10^3/uL (0.0-0.0); Mean Corp Hgb Conc 34.8 g/dL (32-36); Mean Corpuscular Volume 89.5 fL (81-99); Platelet Count 305 K/mm3 (150-450); RBC Distribution Width CV 11.8 % (11.6-14.6); RBC Distribution Width SD 38.2 fl (35.1-43.9); Red Blood Count 4.97 M/mm3 (4.2-5.4); White Blood Count 7.4 K/mm3 (4.4-11.0)
[2025-05-27 08:09] LABS: Mucous, Urine 0 SEEN /hpf (<or=2+)
[2025-05-27 08:12] LABS: Color, Urine Yellow (Yellow); Glucose, Dipstick Normal (Normal); Ketone-Dipstick Negative (Negative); Leukocyte Esterase-Dipstick Negative /ul (Negative); Nitrite-Dipstick Negative (Negative); Occult Blood-Urine 10 /ul (Negative); Protein-Dipstick 15 mg/dl (Negative); Specific Gravity, Urine 1.010 (1.002-1.030); Urine Bilirubin Dipstick Negative (Negative)
[2025-05-27 08:18] LABS: Red Blood Cells-Urine 0-5 SEEN /hpf (0-5); Squamous Epithelial Cells - UA 0-5 SEEN /hpf (5-10)
[2025-05-27 08:24] VITALS: BP 146/84; PULSE 78; RESP 16; O2SAT 98
--- NOTE | 2025-05-27 08:25 | CT_ITS ---
PROCEDURE: CTA HEAD W/WO CONTRAST 05/27/2025 REASON FOR EXAM: SUDDEN ONSET SV HEADACHE/N/V History of migraines. TECHNIQUE: CTA HEAD W/WO CONTRAST Multiplanar Sagittal and Coronal images were obtained. CONTRAST: Isovue 370 VOLUME: 100 mL One or more dose reduction techniques were used (e.g., Automated exposure control, adjustment of the mA and/or kV according to patient size, use of iterative reconstruction technique). RADIATION DOSE SUMMARY: CTDlvol: 29.5 mGy DLP: 1257.44 mGycm COMPARISON: None FINDINGS: [place]: [place] anatomy is normal Anuerysm or AVM: None Distal internal carotid arteries: Plaque formation in the distal portion of the right internal carotid artery causing at least 70% narrowing. Anterior cerebral arteries: Unremarkable Middle cerebral arteries: Unremarkable Vertebral arteries: Unremarkable Basilar artery: Unremarkable Posterior cerebral arteries: Unremarkable Other major branches of the posterior circulation: Unremarkable Major venous structures: Unremarkable Non-vascular findings: Unenhanced imaging of the brain demonstrates mild degree of cerebral atrophy. Faint calcifications in the left basal ganglion. This is a normal variant for the patient's age. No evidence of subarachnoid hemorrhage. CT/CTA Head W/WO Contrast IMPRESSION: Atherosclerotic plaque formation of the distal portion of the left internal car otid artery causing at least 70% stenosis. No evidence of aneurysm. No evidence of subarachnoid hemorrhage. Reading Location: [place] [id number]
[2025-05-27 08:27] LABS: Anion Gap 16 (5-15); BUN 5 mg/dL (4-19); BUN/Creat Ratio 8.0 RATIO (10-20); Calcium,Total 9.7 mg/dL (7.6-11.0); Carbon Dioxide 23.4 mmol/L (21.0-32.0); Chloride 99 mmol/L (98-108); Estimated Creatinine Clearance 147.37 ml/min (50-250); Glucose 135 mg/dL (70-99); Potassium 3.9 mmol/L (3.3-5.1)
--- NOTE | 2025-05-27 09:34 | ED.RN ---
pts mother comes out of room after yelling at dr moreno that person is leaving to go to [facility]. pts mother goes in to the docs office and states i'm sorry, i wasn't trying to yell at you, i was just trying to tell you that she is getting ready to walk out and go to [facility]. this is the second time that patient and mother have yelled at the ED physician and threatened to go to [facility].
[2025-05-27] MEDS: Ketorolac 30 MG/ML Syringe IV (09:54)
[2025-05-27 10:00] VITALS: BP 132/88; PULSE 74; RESP 16; O2SAT 99
--- NOTE | 2025-05-27 10:53 | ED.RN ---
this rn was asked to go into pt room d/t pt repeatdly hitting call light and the assigned nurse was busy. this rn walks in room, pt is up and pacing room asking to get iv gauze chnaged, this rn changes gauze as requested when pt states also were leaving, we have been waiting for ativan for 15 minutes and we are leaving, we are done this rn hands pt dc paperwork and pt leaves. dr and rn notified.
== END 2025-05-27 10:47 | disposition home or self-care (01) ==
PROVIDERS: Emergency Provider Emergency Medicine; PCP Family Medicine; Visit Provider Emergency Medicine
DX: G43.909 Migraine, unspecified, not intractable, without status migrainosus (principal); I10 Essential (primary) hypertension; Z87.891 Personal history of nicotine dependence; R19.7 Diarrhea, unspecified; M79.7 Fibromyalgia; Z90.49 Acquired absence of other specified parts of digestive tract; Z90.710 Acquired absence of both cervix and uterus; K21.9 Gastro-esophageal reflux disease without esophagitis; Z85.41 Personal history of malignant neoplasm of cervix uteri; M54.2 Cervicalgia
CPT/HCPCS: 70496; 80048; 81001; 85025; 96361; 96372; 96374; 96375; 96376; 99283; Q9967; J1110; J2405

== ENCOUNTER → 2025-06-24 | Outpatient (CLI) | payer OTHER, SELFPAY ==
[2025-06-24 12:03] LABS: Hematocrit 44.1 % (37-47); Hemoglobin 14.9 g/dL (12.0-15.0); Immature Granulocytes Count 0.010 X10^3/uL (0.0-0.0); Mean Corp Hgb Conc 33.8 g/dL (32-36); Mean Corpuscular Volume 92.3 fL (81-99); Mean Platelet Vol. 9.5 fl (6.2-12.0); NRBC Flagged by Analyzer 0 % (0-5); Platelet Count 338 K/mm3 (150-450); RBC Distribution Width CV 12.0 % (11.6-14.6); RBC Distribution Width SD 41.1 fl (35.1-43.9); Red Blood Count 4.78 M/mm3 (4.2-5.4); White Blood Count 6.2 K/mm3 (4.4-11.0)
[2025-06-24 12:46] LABS: AST(SGOT) 24 U/L (<=31); Alanine Aminotransfer ALT/SGPT 23 U/L (<=34); Albumin, Serum 4.5 g/dL (3.5-5.0); Alkaline Phosphatase 72 U/L (35-104); Anion Gap 13 (5-15); BUN 9 mg/dL (4-19); BUN/Creat Ratio 11.5 RATIO (10-20); Calcium,Total 9.8 mg/dL (7.6-11.0); Carbon Dioxide 24.9 mmol/L (21.0-32.0); Chloride 100 mmol/L (98-108); Free T3 3.8 pg/mL (2.18-3.98); Globulin 3.3 g/dL (2.2-4.2); Glucose 114 mg/dL (70-99); Potassium 4.3 mmol/L (3.3-5.1)
== END | disposition home or self-care (01) ==
LOC: BFHLAB 10:43
PROVIDERS: PCP Family Medicine; Visit Provider Family Medicine
DX: Z51.81 Encounter for therapeutic drug level monitoring (principal); E03.9 Hypothyroidism, unspecified
CPT/HCPCS: 36415; 80053; 84439; 84443; 84481; 85025